=== PATIENT | male | born 1985 | race American Indian/Alaskan Native ===

== ENCOUNTER 2020-02-07 12:08 | Emergency (ER) | payer SELFPAY ==
[2020-02-07 12:28] VITALS: BP 132/86
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
== END 2020-02-07 17:05 | disposition home or self-care (01) ==
LOC: ED 12:08
DX: M54.2 Cervicalgia (principal); M54.89 Other dorsalgia; V89.0XXA Person injured in unspecified motor-vehicle accident, nontraffic, initial encounter; Y93.89 Activity, other specified; Y92.410 Unspecified street and highway as the place of occurrence of the external cause; Y99.8 Other external cause status
CPT/HCPCS: 99282